=== PATIENT | male | born 1945 | race Caucasian/White ===

== ENCOUNTER 2020-08-04 10:02 | Emergency (ER) | payer OTHER, SELFPAY ==
[2020-08-04 10:19] VITALS: BP 146/81; PULSE 81; TEMP 36.5; O2SAT 96
--- NOTE | 2020-08-04 10:28 | ED.GENADUL_ITS ---
Discharge Plan Disposition Patient Disposition: HOME Condition: Improving Discharge Details Clinical Impression: Cellulitis of left lower leg Primary Care Provider: Bo Rogers ED Provider: Sav Burns Home Meds and New Rx's Prescriptions: New doxycycline hyclate 100 mg capsule 100 mg PO BID 14 Days Qty: 28 RF: 0 Continued omega-3 fatty acids-fish oil 1 EACH capsule 1 ea PO DAILY RF: 0 LOTRIMIN 30 GM CREAM..G. 1 virgil Topical BID Qty: 3 RF: 4 Discharge Instructions Instructions: Cellulitis (ED) Additional Instructions: We will ask care management to arrange a follow-up appointment for you in clinic with Dr. Rogers for recheck. Take the doxycycline as prescribed. This medication can make you sensitive to the sun. Return if you have fever, shaking chills, or any other acute concerns. Home to rest today. WBC 7.55 RBC 4.68 Hgb 14.6 Hct 42.5 MCV 90.8 MCH 31.2 MCHC 34.4 RDW 13.1 Plt Count 214 MPV 10.0 Sodium 135 Potassium 4.2 Chloride 100 Carbon Dioxide 25.7 Anion Gap 9.3 BUN 15 Creatinine 0.7 Estimated GFR/1.73 m2 >= 60.00 Glucose 110 H Calcium 8.8 Total Bilirubin 0.5 AST 23 ALT 32 Alkaline Phosphatase 86 Total Protein 7.7 Albumin 3.9 Medical Decision Making This is a delightful otherwise healthy 74-year-old male . He presents from home complaining of rash on his left calf for 2 to 3 days after you remove the tick. Seen at an urgent care/walk-in yesterday felt to be an allergic reaction, the area was outlined, and overnight the erythema has spread and he has developed a lymphangitic streak up the back of his leg. The area of the rash has some central clearing with question small area of necrosis and I am concerned it is consistent with erythema migrans. He has no signs of systemic infection. I am concerned for tickborne illness. Screening laboratories and tick and Lyme panel were obtained. Patient started on doxycycline. We will ask for a follow- up appointment in primary care clinic for recheck. He is stable and appropriate for outpatient management. Lab Data Lab results reviewed: Yes I reviewed the patient's lab results. Labs: Laboratory Results - last 24 hr 08/04/20 08/04/20 10:42 10:42 WBC 7.55 RBC 4.68 Hgb 14.6 Hct 42.5 MCV 90.8 MCH 31.2 MCHC 34.4 RDW 13.1 Plt Count 214 MPV 10.0 Immature Gran % 0.4 Neutrophils % 63.6 Lymphocytes % 23.4 Monocytes % 8.5 Eosinophils % 3.4 Basophils % 0.7 Nucleated RBC % 0 Absolute Neutrophils 4.80 Absolute Lymphocytes 1.77 Absolute Monocytes 0.64 Absolute Eosinophils 0.26 Absolute Basophils 0.05 Sodium 135 L Potassium 4.2 Chloride 100 Carbon Dioxide 25.7 Anion Gap 9.3 BUN 15 Creatinine 0.7 Estimated GFR/1.73 m2 >= 60.00 Glucose 110 H Calcium 8.8 Total Bilirubin 0.5 AST 23 ALT 32 Alkaline Phosphatase 86 Total Protein 7.7 Albumin 3.9 HPI General Mode of arrival: ambulatory . Date/Time Provider Initiated Documentation: 08/04/20 10:02 . Limitations to Documentation: no limitations . Information obtained by: patient . History of Present Illness and is localized to the left and lower extremity. Patient reports no radiation. Patient s tarted experiencing this day(s) and it has been constant. No relieving factors improve symptom(s), No exacerbating factors reported . Patient notes no other symptoms. and rash; denies fever/chills. Patient did receive the following treatments prior to arrival, none Related Data Home Medications Medication Instructions Recorded Confirmed omega-3 fatty acids-fish oil 1 ea PO DAILY 06/27/12 08/04/20 doxycycline hyclate 100 mg PO BID 14 Days #28 cap 08/04/20 Previous Rx's Medication Instructions Recorded doxycycline hyclate 100 mg PO BID 14 Days #28 cap 08/04/20 Allergies Allergy/AdvReac Type Severity Reaction Status Date / Time No Known Allergies Allergy Unverified 08/04/20 10:37 General Stated Complaint: RashLesion ANN: 4 Review of Systems Narrative: No fever or chills. No other complaints. No chronic medications. 6 systems reviewed and otherwise negative [facility] Surgical History (Updated 12/01/17 @ 14:34 by [employer] [place]) Vasectomy Family History Mother No problems noted. Father No problems noted. Grandfather No problems noted. Grandmother No problems noted. Social History Smoking/Tobacco Use Status: Former Tobacco Use Smoking risk assessment performed?: Yes Alcohol Intake: current Alcohol Intake frequency: 0-2 drinks per day Alcohol type: wine Drug use: Never Substance use type: does not use Do you feel safe at home: Yes Do you feel safe in your relationship?: Yes Exam Narrative Exam Narrative: GEN: awake, alert, oriented 3. Pleasant, well groomed, interact [place]. HEAD: Normocephalic, atraumatic EYES: PERRL, EOMI NECK: Full ROM, no ADALBERTO, no menigismus CHEST/RESP: Nontender, clear to auscultation bilateral, no wheeze/rhonchi/rales CARDIOVASCULAR: RRR, no murmur, rub jesse. 2+ Rad pulse bilateral EXT: Full ROM, knee left posterior calf has a erythematous area measuring approximately 5 to 7 cm in diameter with a sending lymphangitic streak. It is warm and indurated to the touch. There is no fluctuance. There is a central area of clearing probable bite site that the patient states he removed a tick from. Neuro: Grossly normal neurologic exam, conversant, interactive. Psych: Speech fluent, thoughts congruent, affect normal Course Vital Signs Vital signs: Vital Signs Temperature 36.5 C 08/04/20 10:19 Pulse 81 08/04/20 10:19 Blood Pressure 146/81 H 08/04/20 10:19 Pulse Oximetry 96 08/04/20 10:19 Temperature 36.5 C 08/04/20 10:19 Temperature Source Temporal Artery Scan 08/04/20 10:19 Pulse 81 08/04/20 10:19 Respiratory Effort Non-Labored 08/04/20 10:22 Blood Pressure 146/81 H 08/04/20 10:19 Blood Pressure Position Sitting 08/04/20 10:19 Pulse Oximetry 96 08/04/20 10:19 Oxygen Delivery Method Room Air 08/04/20 10:19 Oxygen Flow Rate 0 08/04/20 10:19 Pain Level 1 08/04/20 10:19
[2020-08-04] MEDS: Doxycycline Hyclate 100 MG, 2 CAPS/BTL PO (10:35)
[2020-08-04 10:47] LABS: Abs Immature Grans 0.03 10^3/uL (0.0-0.06); Absolute Basophil Count 0.05 10^3/uL (0.0-0.2); Absolute Eosinophil Count 0.26 10^3/uL (0.0-0.7); Absolute Lymphocyte Count 1.77 10^3/uL (1.2-3.4); Absolute Monocyte Count 0.64 10^3/uL (0.1-0.8); Basophils % 0.7; Eosinophils % 3.4; HCT 42.5 % (40.0-50.0); HGB 14.6 g/dL (13.5-17.5); Immature Grans % 0.4; Lymphocytes % 23.4; MCH 31.2 pg (27.0-33.0); MCHC 34.4 % (32.0-36.0); MCV 90.8 fL (80-95); Monocytes % 8.5; Neutrophils % 63.6; Nucleated RBC 0 %; Platelet Count 214 10^3/uL (130-400); RBC 4.68 10^6/uL (4.36-5.78); RDW 13.1 % (11.8-14.1); RDW-SD 43.1 fL; WBC 7.55 10^3/uL (4.4-10.8)
[2020-08-04 11:01] LABS: ALT 32 U/L (16-63); AST 23 U/L (15-37); Albumin 3.9 g/dL (3.4-5.0); Alkaline Phosphatase 86 U/L (46-116); Anion Gap 9.3 mmol/L (3-11); BUN 15 mg/dL (7-18); Bilirubin, Total 0.5 mg/dL (0.2-1.0); CO2 25.7 mmol/L (21.0-32.0); CREATININE 0.7 mg/dL (0.70-1.30); Calcium 8.8 mg/dL (8.5-10.1); Chloride 100 mmol/L (98-107); Glucose 110 mg/dL (74-106); Potassium 4.2 mmol/L (3.5-5.1); Sodium 135 mmol/L (136-145); Total Protein 7.7 g/dL (6.4-8.2)
--- NOTE | 2020-08-05 03:22 | NUR.NOTE ---
Referral faxed to [facility] Dr. Rogers to f/u 7-10 days LLE cellulitis.Nursing Note:
[2020-08-05 12:01] LABS: Lyme Ab w Rflx to Lyme Confirm Negative (Negative)
[2020-08-06 04:12] LABS: Anaplasma phagocytophilum Negative (Negative); B. miyamotoi PCR Negative (Negative); Babesia divergens/MO-1 Negative (Negative); Babesia duncani Negative (Negative); Babesia microti Negative (Negative); Ehrlichia chaffeensis Negative (Negative); Ehrlichia ewingii/canis Negative (Negative); Ehrlichia muris eauclairensis Negative (Negative)
== END 2020-08-04 11:27 | disposition home or self-care (01) ==
LOC: ER 10:43
PROVIDERS: Emergency Provider Emergency Medicine; PCP Emergency Medicine
DX: L03.116 Cellulitis of left lower limb (principal)
CPT/HCPCS: 36415; 80053; 87798; 99283; 85025; 86618

== ENCOUNTER 2021-12-01 19:13 | Outpatient (REF) | payer BC, SELFPAY ==
[2021-12-01 17:31] LABS: Abs Immature Grans 0.01 10^3/uL (0.0-0.06); Absolute Basophil Count 0.04 10^3/uL (0.0-0.2); Absolute Monocyte Count 0.51 10^3/uL (0.1-0.8); Absolute Neutrophil Count 3.89 10^3/uL (1.2-6.7); Basophils % 0.6; Eosinophils % 1.6; HCT 38.6 % (40.0-50.0); HGB 13.2 g/dL (13.5-17.5); Immature Grans % 0.2; Lymphocytes % 29.5; MCH 30.9 pg (27.0-33.0); MCHC 34.2 % (32.0-36.0); MCV 90 fL (80-95); MPV 11.7 fL (8.0-11.0); Monocytes % 7.9; Neutrophils % 60.2; Platelet Count 173 10^3/uL (130-400); RBC 4.27 10^6/uL (4.36-5.78); RDW 13.7 % (11.8-14.1); RDW-SD 45.8 fL; WBC 6.45 10^3/uL (4.4-10.8)
[2021-12-01 17:40] LABS: ALT 41 U/L (16-63); AST 38 U/L (15-37); Albumin 4.2 g/dL (3.4-5.0); Alkaline Phosphatase 60 U/L (46-116); Anion Gap 6.9 mmol/L (3-11); BUN 13 mg/dL (7-18); Bilirubin, Total 0.7 mg/dL (0.2-1.0); CO2 27.1 mmol/L (21.0-32.0); CREATININE 0.6 mg/dL (0.70-1.30); Chloride 98 mmol/L (98-107); Estimated GFR 100.04 (mL/min/1.73m2); Glucose 99 mg/dL (74-106); Potassium 4.1 mmol/L (3.5-5.1); Sodium 132 mmol/L (136-145); Total Protein 7.4 g/dL (6.4-8.2)
[2021-12-01 17:45] LABS: Calculated LDL 191 mg/dL (<100); Cholesterol 257 mg/dL (<200); HDL Cholesterol 60 mg/dL (40-60); Triglyceride 30 mg/dL (<150)
== END 2021-12-01 19:14 | disposition home or self-care (01) ==
LOC: LBN 19:13
PROVIDERS: Visit Provider Nurse Practitioner Family
DX: Z13.220 Encounter for screening for lipoid disorders (principal); R03.0 Elevated blood-pressure reading, without diagnosis of hypertension
CPT/HCPCS: 80053; 80061; 85025

== ENCOUNTER 2023-03-20 16:31 | Outpatient (REF) | payer BC, SELFPAY ==
[2023-03-20 16:48] LABS: Abs Immature Grans 0.01 10^3/uL (0.0-0.06); Absolute Basophil Count 0.04 10^3/uL (0.0-0.2); Absolute Eosinophil Count 0.09 10^3/uL (0.0-0.7); Absolute Lymphocyte Count 1.75 10^3/uL (1.2-3.4); Absolute Neutrophil Count 4.34 10^3/uL (1.2-6.7); Basophils % 0.6; Eosinophils % 1.3; HGB 14.6 g/dL (13.5-17.5); Immature Grans % 0.1; MCH 30.5 pg (27.0-33.0); MCV 90 fL (80-95); MPV 10.5 fL (8.0-11.0); Monocytes % 7.4; Neutrophils % 64.6; Platelet Count 215 10^3/uL (130-400); RBC 4.79 10^6/uL (4.36-5.78); RDW 12.8 % (11.8-14.1); RDW-SD 42.2 fL; WBC 6.73 10^3/uL (4.4-10.8)
[2023-03-20 17:11] LABS: ALT 43 U/L (16-63); AST 35 U/L (15-37); Albumin 4.1 g/dL (3.4-5.0); Alkaline Phosphatase 64 U/L (46-116); Anion Gap 0.8 mmol/L (3-11); BUN 14 mg/dL (7-18); Bilirubin, Total 0.6 mg/dL (0.2-1.0); CO2 30.2 mmol/L (21.0-32.0); CREATININE 0.6 mg/dL (0.70-1.30); Calcium 9.3 mg/dL (8.5-10.1); Calculated LDL 195 mg/dL (<100); Chloride 97 mmol/L (98-107); Cholesterol 266 mg/dL (<200); Estimated GFR 98.81 (mL/min/1.73m2); Glucose 99 mg/dL (74-106); HDL Cholesterol 58 mg/dL (40-60); Sodium 128 mmol/L (136-145); Total Protein 7.5 g/dL (6.4-8.2); Triglyceride 67 mg/dL (<150)
== END 2023-03-20 16:32 | disposition home or self-care (01) ==
LOC: LBN 16:31
PROVIDERS: Visit Provider Physician Assistant Medical
DX: R03.0 Elevated blood-pressure reading, without diagnosis of hypertension (principal); R79.89 Other specified abnormal findings of blood chemistry; Z13.220 Encounter for screening for lipoid disorders; Z13.0 Encounter for screening for diseases of the blood and blood-forming organs and certain disorders involving the immune mechanism
CPT/HCPCS: 80053; 80061; 85025